=== PATIENT | female | born 1940 | race Caucasian/White ===

== ENCOUNTER 2019-11-22 18:53 | Inpatient (IN) | payer MEDICARE ==
[~2019-11-22] VITALS: Ht 165.1 cm; Wt 99.3 kg
[~2019-11-22 18:53] MED LIST: HYDR12.575 PO; LEVO25TA4 PO
--- NOTE | 2019-11-22 19:22 | PHYS DOC ---
General Adult EDM: Chief Complaint: WEAKNESS/GENERALIZED HPI: HPI: 79-year-old female past medical history hypertension hyperlipidemia hypothyroid presents by EMS for the evaluation of generalized weakness. Patient states she is globally weak. She states she cannot get up out of her bed and walk. She tells me that her cannot take care of her. Earlier this month patient was hospitalized at [facility] for a fall related to dizziness. Patient states she had a forehead laceration that required 6 sutures. After hospitalization patient states she was discharged to [facility]. She states she was at [facility] for 1 week and then discharged yesterday. Patient complains that she is so weak that she cannot stand or walk. She states her is also weak and cannot take care of her. She denies any headache chest pain shortness of breath abdominal pain. Review of Systems: Review of Systems: Constitutional: Denies fever or chills. [] Eyes: Denies change in visual acuity. [] HENT: Denies nasal congestion or sore throat. [] Respiratory: Denies cough or shortness of breath. [] Cardiovascular: Denies chest pain or edema. [] GI: Denies abdominal pain, nausea, vomiting, bloody stools or diarrhea. [] : Denies dysuria. [] Musculoskeletal: Denies back pain or joint pain. [] Integument: Denies rash. [] Neurologic: Denies headache, focal weakness or sensory changes. [Positive generalized weakness] Endocrine: Denies polyuria or polydipsia. [] Lymphatic: Denies swollen glands. [] Psychiatric: Denies depression or anxiety. [] Heart Score: Risk Factors: Risk Factors: DM, Current or recent (<one month) smoker, HTN, HLP, family history of CAD, obesity. Risk Scores: Score 0 - 3: 2.5% MACE over next 6 weeks - Discharge Home Score 4 - 6: 20.3% MACE over next 6 weeks - Admit for Clinical Observation Score 7 - 10: 72.7% MACE over next 6 weeks - Early Invasive Strategies Allergies: Allergies: Allergies Coded Allergies Type Severity Reaction Last Updated Verified No Known Drug Allergies 06/26/13 No Physical Exam: PE: Constitutional: Well developed, well nourished, no acute distress, non-toxic appearance. [] HENT: Normocephalic, atraumatic, bilateral external ears normal, oropharynx moist, no oral exudates, nose normal. [] Eyes: PERRLA, EOMI, conjunctiva normal, no discharge. [] Neck: Normal range of motion, no tenderness, supple, no stridor. [] Cardiovascular:Heart rate regular rhythm, no murmur [] Lungs & Thorax: Bilateral breath sounds clear to auscultation [] Abdomen: Bowel sounds normal, soft, no tenderness, no masses, no pulsatile mass es. [] Skin: Warm, dry, no erythema, no rash. [] Back: No tenderness, no CVA tenderness. [] Extremities: No tenderness, no cyanosis, no clubbing, ROM intact, no edema. [] Neurologic: Alert and oriented X 3, normal motor function, normal sensory function, no focal deficits noted. [] Psychologic: Affect normal, judgement normal, mood normal. [] EKG: EKG: [] EKG time 1913 sinus rhythm left axis deviation no ST elevation no ST depression no acute TX Heart rate 82 Radiology/Procedures: Radiology/Procedures: [] Course & Med Decision Making: Course & Med Decision Making Pertinent Labs and Imaging studies reviewed. (See chart for details) [] Dragon Disclaimer: Dragon Disclaimer: This electronic medical record was generated, in whole or in part, using a voice recognition dictation system. Departure Departure Impression: Primary Impression: Weakness Disposition: ADMITTED INPATIENT Admitting Physician: NICA Condition: STABLE Referrals: DELIA SAWANT MD (PCP) Justicifation of Admission Dx: Justifications for Admission: Justification of Admission Dx: Yes Comments: Generalized Weakness, Unable to Care for Self AHMET RODRÍGUEZ I DO Nov 22, 2019 19:22
[2019-11-22 20:00] LABS: BASO % 0 % (0-3); EOS % 0 % (0-3); HEMATOCRIT 37.1 % (36.0-47.0); HEMOGLOBIN 12.9 g/dL (12.0-15.5); LYMPH % 9 % (24-48); MEAN CORPUSCULAR HEMOGLOBIN 33 pg (25-35); MEAN CORPUSCULAR HGB CONC 35 g/dL (31-37); MEAN CORPUSCULAR VOLUME 95 fL (79-100); MONO # 0.6 x10^3/uL (0.0-1.1); MONO % 6 % (0-9); NEUT # 9.6 x10^3/uL (1.8-7.7); NEUT % 85 % (31-73); PLATELET COUNT 249 x10^3/uL (140-400); RED BLOOD COUNT 3.91 x10^6/uL (3.50-5.40); RED CELL DISTRIBUTION WIDTH 14.9 % (11.5-14.5); WHITE BLOOD COUNT 11.3 x10^3/uL (4.0-11.0)
[2019-11-22 20:33] LABS: % LYMPHS 13 % (24-48); % MONOS 5 % (0-10); % SEGS 82 % (35-66); PLT ESTIMATE ADEQUATE (ADEQUATE)
[2019-11-22 20:35] LABS: CALCIUM 9.7 mg/dL (8.5-10.1); CREATININE 1.1 mg/dL (0.6-1.0); GFR 47.8; POTASSIUM 4.5 mmol/L (3.5-5.1)
[2019-11-22 20:40] LABS: ALBUMIN 3.6 g/dL (3.4-5.0); ALBUMIN/GLOBULIN RATIO 0.9 (1.0-1.7); TOTAL BILIRUBIN 0.7 mg/dL (0.2-1.0); TOTAL PROTEIN 7.7 g/dL (6.4-8.2)
[2019-11-22] MEDS ORDERED: ACETAMINOPHEN 325 MG TABLET. PO ONE (22:30)
[2019-11-22 23:30] VITALS: BP 111/63
[2019-11-23] MEDS ORDERED: AMLO10TA8 PO (00:02)
[2019-11-23 03:00] VITALS: BP 150/63
[2019-11-23 07:00] VITALS: BP 153/64
--- NOTE | 2019-11-23 07:44 | PDOC1 ---
History and Physical Date of Admission Date of Admission DATE: 11/23/19 TIME: 07:41 Identification/Chief Complaint Chief Complaint Generalized weakness Source Source: Patient History of Present Illness History of Present Illness Patient is an 79-year-old female who presents with complaints of generalized weakness for the past month. She states her weakness is worse in her bilateral lower legs. Patient was recently hospitalized at [facility] after sustaining a fall with head injury. She was sent to [facility] for further rehab and discharged home. Patient states that her weaknes s has not gotten any worse, but has not gotten better, which is the reason why she came to the ER. She states she lives at home with her who is unable to care for. They have discussed long-term care in the past but have been unable to make a decision appropriate facility. Patient is wanting to pursue long-term care facilities upon discharge. I questioned her about her past medical history, she giggles and states "I do not know". She denies any significant pain. Past Medical History Past Medical History Unable to obtain due to confusion Past Surgical History Past Surgical History Unable to obtain due to confusion Family History Family History Noncontributory Social History Smoke: No ALCOHOL: none Drugs: None Current Problem List Problem List Problems Medical Problems: (1) Weakness Status: Acute Current Medications Current Medications Current Medications Acetaminophen (Tylenol) 650 mg 1X ONCE PO Last administered on 11/22/19at 22:44; Start 11/22/19 at 22:30; Stop 11/22/19 at 22:31; Status DC Calcium Carbonate/ Glycine (Tums) 500 mg PRN Q3HRS PRN PO UPSET STOMACH; Start 11/23/19 at 07:45; Status UNV Acetaminophen (Tylenol) 650 mg PRN Q6HRS PRN PO Headaches, Temp > 101.5F; Start 11/23/19 at 07:45; Status UNV Ibuprofen (Motrin) 400 mg PRN Q6HRS PRN PO MILD PAIN 1-3; Start 11/23/19 at 07:45; Status UNV Docusate Sodium (Colace) 100 mg BID PO ; Start 11/23/19 at 09:00; Status UNV Heparin Sodium (Porcine) (Heparin Sodium) 5,000 unit Q12HR SQ ; Start 11/23/19 at 09:00; Status UNV Active Scripts Active Reported Amlodipine Besylate 10 Mg Tablet 10 Mg PO DAILY Hydrochlorothiazide Capsule (Hydrochlorothiazide) 12.5 Mg Capsule 12.5 Mg PO Levothyroxine Sodium 25 Mcg Tablet 25 Mcg PO Allergies Allergies: Coded Allergies: No Known Drug Allergies (Unverified , 06/26/13) ROS General: No: Chills, Night Sweats PSYCHOLOGICAL ROS: No: Hallucinations, Suicidal ideation Eyes: No Blurry vision, No Double vision HEENT: No: Nasal discharge, Sore Throat ALLERGY AND IMMUNOLOGY: No: Hives, Nasal Congestion Hematological and Lymphatic: No: Bleeding Problems, Brusing Respiratory: No: Cough, Shortness of breath Cardiovascular: No Chest Pain, No Palpitations Gastrointestinal: No Nausea, No Vomiting, No Abdominal Pain Genitourinary: No Dysuria, No Hematuria Musculoskeletal: Yes Joint Pain (Right hip pain); No Joint Swelling Neurological: Yes Confusion; No Headaches Skin: No Pruritus, No Rash Physical Exam General: Alert, No acute distress HEENT: PERRLA, EOMI Lungs: Clear to auscultation, Normal air movement Heart: RRR, other (Systolic murmur) Cardiovascular: S1, S2 Abdomen: Soft, No tenderness, Other (Obese abdomen) Extremities: No clubbing, No cyanosis, Other (+1 bilateral lower extremity edema) Skin: No rashes, No significant lesion Neuro: Other (Strength 2/3 bilateral lower extremities) Psych/Mental Status: Mood NL Vitals Vitals Vital Signs Date Time Temp Pulse Resp B/P (MAP) Pulse Ox O2 Delivery O2 Flow Rate FiO2 11/23/19 03:00 98.4 80 18 150/63 (92) 96 Room Air 98.4 Labs Labs Laboratory Tests Test 11/22/19 19:55 11/22/19 20:20 White Blood Count 11.3 x10^3/uL (4.0-11.0) Red Blood Count 3.91 x10^6/uL (3.50-5.40) Hemoglobin 12.9 g/dL (12.0-15.5) Hematocrit 37.1 % (36.0-47.0) Mean Corpuscular Volume 95 fL (79-100) Mean Corpuscular Hemoglobin 33 pg (25-35) Mean Corpuscular Hemoglobin Concent 35 g/dL (31-37) Red Cell Distribution Width 14.9 % (11.5-14.5) Platelet Count 249 x10^3/uL (140-400) Neutrophils (%) (Auto) 85 % (31-73) Lymphocytes (%) (Auto) 9 % (24-48) Monocytes (%) (Auto) 6 % (0-9) Eosinophils (%) (Auto) 0 % (0-3) Basophils (%) (Auto) 0 % (0-3) Neutrophils # (Auto) 9.6 x10^3/uL (1.8-7.7) Lymphocytes # (Auto) 1.0 x10^3/uL (1.0-4.8) Monocytes # (Auto) 0.6 x10^3/uL (0.0-1.1) Eosinophils # (Auto) 0.0 x10^3/uL (0.0-0.7) Basophils # (Auto) 0.0 x10^3/uL (0.0-0.2) Segmented Neutrophils % 82 % (35-66) Lymphocytes % 13 % (24-48) Monocytes % 5 % (0-10) Platelet Estimate Adequate (ADEQUATE) Sodium Level 137 mmol/L (136-145) Potassium Level 4.5 mmol/L (3.5-5.1) Chloride Level 103 mmol/L (98-107) Carbon Dioxide Level 27 mmol/L (21-32) Anion Gap 7 (6-14) Blood Urea Nitrogen 43 mg/dL (7-20) Creatinine 1.1 mg/dL (0.6-1.0) Estimated GFR (Cockcroft-Gault) 47.8 BUN/Creatinine Ratio 39 (6-20) Glucose Level 137 mg/dL (70-99) Calcium Level 9.7 mg/dL (8.5-10.1) Total Bilirubin 0.7 mg/dL (0.2-1.0) Aspartate Amino Transf (AST/SGOT) 21 U/L (15-37) Alanine Aminotransferase (ALT/SGPT) 14 U/L (14-59) Alkaline Phosphatase 145 U/L (46-116) Troponin I Quantitative < 0.017 ng/mL (0.000-0.055) Total Protein 7.7 g/dL (6.4-8.2) Albumin 3.6 g/dL (3.4-5.0) Albumin/Globulin Ratio 0.9 (1.0-1.7) Laboratory Tests Test 11/22/19 19:55 11/22/19 20:20 White Blood Count 11.3 x10^3/uL (4.0-11.0) Red Blood Count 3.91 x10^6/uL (3.50-5.40) Hemoglobin 12.9 g/dL (12.0-15.5) Hematocrit 37.1 % (36.0-47.0) Mean Corpuscular Volume 95 fL (79-100) Mean Corpuscular Hemoglobin 33 pg (25-35) Mean Corpuscular Hemoglobin Concent 35 g/dL (31-37) Red Cell Distribution Width 14.9 % (11.5-14.5) Platelet Count 249 x10^3/uL (140-400) Neutrophils (%) (Auto) 85 % (31-73) Lymphocytes (%) (Auto) 9 % (24-48) Monocytes (%) (Auto) 6 % (0-9) Eosinophils (%) (Auto) 0 % (0-3) Basophils (%) (Auto) 0 % (0-3) Neutrophils # (Auto) 9.6 x10^3/uL (1.8-7.7) Lymphocytes # (Auto) 1.0 x10^3/uL (1.0-4.8) Monocytes # (Auto) 0.6 x10^3/uL (0.0-1.1) Eosinophils # (Auto) 0.0 x10^3/uL (0.0-0.7) Basophils # (Auto) 0.0 x10^3/uL (0.0-0.2) Segmented Neutrophils % 82 % (35-66) Lymphocytes % 13 % (24-48) Monocytes % 5 % (0-10) Platelet Estimate Adequate (ADEQUATE) Sodium Level 137 mmol/L (136-145) Potassium Level 4.5 mmol/L (3.5-5.1) Chloride Level 103 mmol/L (98-107) Carbon Dioxide Level 27 mmol/L (21-32) Anion Gap 7 (6-14) Blood Urea Nitrogen 43 mg/dL (7-20) Creatinine 1.1 mg/dL (0.6-1.0) Estimated GFR (Cockcroft-Gault) 47.8 BUN/Creatinine Ratio 39 (6-20) Glucose Level 137 mg/dL (70-99) Calcium Level 9.7 mg/dL (8.5-10.1) Total Bilirubin 0.7 mg/dL (0.2-1.0) Aspartate Amino Transf (AST/SGOT) 21 U/L (15-37) Alanine Aminotransferase (ALT/SGPT) 14 U/L (14-59) Alkaline Phosphatase 145 U/L (46-116) Troponin I Quantitative < 0.017 ng/mL (0.000-0.055) Total Protein 7.7 g/dL (6.4-8.2) Albumin 3.6 g/dL (3.4-5.0) Albumin/Globulin Ratio 0.9 (1.0-1.7) VTE Prophylaxis Ordered VTE Prophylaxis Devices: No VTE Pharmacological Prophylaxi: Yes Assessment/Plan Assessment/Plan Generalized weakness, vasomotor nephropathy, physical deconditioning, dehydration Plan: Place inpatient evaluate with PT/OT. Patient is interested in pursuing long-term care. Echocardiogram, vitamin B12, CK, TSH. Will give supportive care with IV normal saline. Cardiac Diet. DVT prophylaxis. DNR. Justifications for Admission Other Justification NOVA WONG MD Nov 23, 2019 07:44
[2019-11-23] MEDS ORDERED: CALCIUM CARBONATE 500 MG TAB.CHEW PO PRN (07:45)
[2019-11-23] MEDS: IV NORMAL SALINE 1000ML BAG 1,000 ML IV SCH ×2 (09:00→20:08)
[2019-11-23] MEDS: DOCUSATE SODIUM 100 MG CAPSULE. PO SCH ×2 (09:35→20:08)
[2019-11-23] MEDS: HEPARIN for SUB-Q USE 5,000 UNIT/ML VIAL. SQ SCH ×2 (09:41→20:13)
[2019-11-23 11:00] VITALS: BP 143/60
[2019-11-23 15:00] VITALS: BP 129/48
[2019-11-23 19:00] VITALS: BP 149/66
[2019-11-23 23:00] VITALS: BP 139/49
[2019-11-24 03:00] VITALS: BP 145/66
[2019-11-24 04:30] LABS: BASO % 0 % (0-3); CALCIUM 8.6 mg/dL (8.5-10.1); CREATININE 0.8 mg/dL (0.6-1.0); EOS % 0 % (0-3); HEMATOCRIT 35.2 % (36.0-47.0); HEMOGLOBIN 11.6 g/dL (12.0-15.5); LYMPH # 1.7 x10^3/uL (1.0-4.8); LYMPH % 26 % (24-48); MEAN CORPUSCULAR HEMOGLOBIN 33 pg (25-35); MEAN CORPUSCULAR HGB CONC 33 g/dL (31-37); MEAN CORPUSCULAR VOLUME 99 fL (79-100); MONO # 0.6 x10^3/uL (0.0-1.1); MONO % 9 % (0-9); NEUT # 4.2 x10^3/uL (1.8-7.7); NEUT % 65 % (31-73); PLATELET COUNT 192 x10^3/uL (140-400); RED BLOOD COUNT 3.56 x10^6/uL (3.50-5.40); RED CELL DISTRIBUTION WIDTH 14.9 % (11.5-14.5); WHITE BLOOD COUNT 6.4 x10^3/uL (4.0-11.0)
[2019-11-24] MEDS: LEVOTHYROXINE 25 MCG TABLET. PO SCH (06:02)
[2019-11-24] MEDS: IV NORMAL SALINE 1000ML BAG 1,000 ML IV SCH ×2 (06:02→15:10)
[2019-11-24 07:00] VITALS: BP 124/47
[2019-11-24] MEDS: DOCUSATE SODIUM 100 MG CAPSULE. PO SCH ×2 (08:16→20:37)
[2019-11-24] MEDS: hydroCHLOROthiazide 12.5 MG CAPSULE PO SCH (08:16)
[2019-11-24] MEDS: HEPARIN for SUB-Q USE 5,000 UNIT/ML VIAL. SQ SCH ×2 (08:21→20:37)
[2019-11-24 11:00] VITALS: BP 122/49
--- NOTE | 2019-11-24 12:22 | PDOC ---
[employer] PROGRESS NOTE Date of Service DOS: DATE: 11/24/19 TIME: 12:15 Chief Complaint Chief Complaint Generalized weakness vasomotor nephropathy Anemia due to B12 deficiency physical deconditioning dehydration Dementia We will start IV and p.o. vitamin B12 replacement inpatient evaluate with PT/OT. Echocardiogram, vitamin B12, CK, TSH Lovenox for DVT prophylaxis ADA diet DNR Discussed with RN and PETER Disposition pending SNF versus LTAC placement Surrogate decision maker is the . History of Present Illness History of Present Illness 79-year-old female who presents with complaints of generalized weakness for the past month. She states her weakness is worse in her bilateral lower legs. Patient was recently hospitalized at [facility] after sustaining a f all with head injury. She was sent to [facility] for further rehab and discharged home. Patient states that her weakness has not gotten any worse, but has not gotten better, which is the reason why she came to the ER. She states she lives at home with her who is unable to care for. They have discussed long-term care in the past but have been unable to make a decision appropriate facility. Patient is wanting to pursue long-term care facilities upon discharge. I questioned her about her past medical history, she giggles and states "I do not know". She denies any significant pain. 11/24/2019 No acute events overnight. Patient seen and examined bedside. Patient is mildly confused and is alert and awake. Patient does not have any complaints at this time. Patient's chart, labs, images were reviewed and discussed with RN Vitals/I&O Vitals/I&O: Vital Signs Date Time Temp Pulse Resp B/P (MAP) Pulse Ox O2 Delivery O2 Flow Rate FiO2 11/24/19 11:00 97.7 78 16 122/49 (73) 96 Room Air 97.7 I & O 11/23/19 11/23/19 11/24/19 15:00 23:00 07:00 Intake Total 200 ml 240 ml 300 ml Balance 200 ml 240 ml 300 ml Physical Exam Physical Exam: GEN: No apparent distress. Alert and oriented HEENT: Normal cephalic, atraumatic, external auditory canals are patent NECK: Supple, no JVD, no thyromegaly was noted LUNGS: Bilateral crackles HEART: RRR, S1, S2 present. Peripheral pulses intact, no obvious murmurs noted ABDOMEN: Soft, nontender. Positive bowel sounds, no organomegaly, normal bowel sounds EXTREMITIES: Strength is 4 out of 5 in lower extremities. +1 pedal edema bilaterally General: Alert, No acute distress Abdomen: Soft, No tenderness, Other (Obese abdomen) Extremities: No clubbing, No cyanosis, Other (+1 bilateral lower extremity edema) Skin: No rashes, No significant lesion Labs Labs: Laboratory Tests Test 11/24/19 03:35 White Blood Count 6.4 x10^3/uL (4.0-11.0) Red Blood Count 3.56 x10^6/uL (3.50-5.40) Hemoglobin 11.6 g/dL (12.0-15.5) Hematocrit 35.2 % (36.0-47.0) Mean Corpuscular Volume 99 fL (79-100) Mean Corpuscular Hemoglobin 33 pg (25-35) Mean Corpuscular Hemoglobin Concent 33 g/dL (31-37) Red Cell Distribution Width 14.9 % (11.5-14.5) Platelet Count 192 x10^3/uL (140-400) Neutrophils (%) (Auto) 65 % (31-73) Lymphocytes (%) (Auto) 26 % (24-48) Monocytes (%) (Auto) 9 % (0-9) Eosinophils (%) (Auto) 0 % (0-3) Basophils (%) (Auto) 0 % (0-3) Neutrophils # (Auto) 4.2 x10^3/uL (1.8-7.7) Lymphocytes # (Auto) 1.7 x10^3/uL (1.0-4.8) Monocytes # (Auto) 0.6 x10^3/uL (0.0-1.1) Eosinophils # (Auto) 0.0 x10^3/uL (0.0-0.7) Basophils # (Auto) 0.0 x10^3/uL (0.0-0.2) Sodium Level 141 mmol/L (136-145) Potassium Level 4.0 mmol/L (3.5-5.1) Chloride Level 107 mmol/L (98-107) Carbon Dioxide Level 26 mmol/L (21-32) Anion Gap 8 (6-14) Blood Urea Nitrogen 24 mg/dL (7-20) Creatinine 0.8 mg/dL (0.6-1.0) Estimated GFR (Cockcroft-Gault) 69.0 Glucose Level 88 mg/dL (70-99) Calcium Level 8.6 mg/dL (8.5-10.1) Assessment and Plan Assessmemt and Plan Problems Medical Problems: (1) Weakness Status: Acute Comment Review of Relevant I have reviewed the following items juan j (where applicable) has been applied. Medications: Current Medications Medications (Trade) Dose Ordered Sig/Sharif Route PRN Reason Start Time Stop Time Status Last Admin Dose Admin Hydrochlorothiazide (Microzide) 12.5 mg DAILY08 PO 11/24/19 08:00 11/24/19 08:16 Levothyroxine Sodium (Synthroid) 25 mcg DAILY06 PO 11/24/19 06:00 11/24/19 06:02 Justifications for Admission Other Justification RULA RODRIGUEZ MD Nov 24, 2019 12:22
[2019-11-24] MEDS ORDERED: CYANOCOBALAMIN (VITAMIN B-12) 1,000 MCG/ML VIAL IM ONE (12:30)
[2019-11-24 15:00] VITALS: BP 118/46
[2019-11-24 19:00] VITALS: BP 152/55
[2019-11-24] MEDS: ACETAMINOPHEN 325 MG TABLET. PO PRN (20:31)
[2019-11-24 23:00] VITALS: BP 150/64
[2019-11-25] MEDS: IV NORMAL SALINE 1000ML BAG 1,000 ML IV SCH ×3 (00:52→21:03)
[2019-11-25 03:00] VITALS: BP 166/71
[2019-11-25] MEDS: LEVOTHYROXINE 25 MCG TABLET. PO SCH (05:44)
[2019-11-25 07:00] VITALS: BP 158/74
[2019-11-25 07:20] LABS: CALCIUM 8.5 mg/dL (8.5-10.1); CREATININE 0.8 mg/dL (0.6-1.0); POTASSIUM 3.5 mmol/L (3.5-5.1)
[2019-11-25] MEDS: DOCUSATE SODIUM 100 MG CAPSULE. PO SCH ×2 (08:44→21:03)
[2019-11-25] MEDS: hydroCHLOROthiazide 12.5 MG CAPSULE PO SCH (08:45)
[2019-11-25] MEDS: CYANOCOBALAMIN (VITAMIN B-12) 1,000 MCG TABLET. PO SCH (08:45)
[2019-11-25] MEDS: HEPARIN for SUB-Q USE 5,000 UNIT/ML VIAL. SQ SCH ×2 (08:47→21:09)
--- NOTE | 2019-11-25 10:52 | NUR ---
PETER following. Discussed with RN, cardiac diet. Pt has apparently been to [facility] in the past. SW awaiting confirmation from [facility] of whether pt has any SNU days left. PT/OT ordered, pt having an echo today. Per chart pt wanting manager intermediate care placement, pt does not have medicaid - SW called [employer] to determine if they can do a medicaid application for pt for [facility] intermediate care - however no answer, and voicemail box full. PETER will continue to follow. Addendum: 11/25/19 at 1357 by VALENTINA GREEN PETER met with pt, pt is in her copay days for SNU. Pt reported she was at [facility] for 4 weeks and she cannot afford the copays. Pt interested in [facility] care. PETER was able to reach [employer] to have them determine if pt is eligible for medicaid. Pt reported her is at home, but she does not have anyone else to help take care of her. RN notified.
[2019-11-25 11:00] VITALS: BP 158/54
--- NOTE | 2019-11-25 14:56 | PDOC ---
[employer] PROGRESS NOTE Date of Service DOS: DATE: 11/25/19 TIME: 14:54 Chief Complaint Chief Complaint Generalized weakness vasomotor nephropathy Anemia due to B12 deficiency physical deconditioning dehydration Dementia IV potassium replacement today We will start IV and p.o. vitamin B12 replacement inpatient evaluate with PT/OT. Pending echo Pending COVID testing before discharge to SNF Lovenox for DVT prophylaxis ADA diet DNR Discussed with RN and PETER Disposition pending SNF versus LTAC placement Surrogate decision maker is the . History of Present Illness History of Present Illness 79-year-old female who presents with complaints of generalized weakness for the past month. She states her weakness is worse in her bilateral lower legs. Patient was recently hospitalized at [facility] after sustaining a fall with head injury. She was sent to [facility] for further rehab and discharged home. Patient states that her weakness has not gotten any worse, but has not gotten better, which is the reason why she came to the ER. She states she lives at home with her who is unable to care for. They have discussed long-term care in the past but have been unable to make a decision appropriate facility. Patient is wanting to pursue long-term care facilities upon discharge. I questioned her about her past medical history, she giggles and states "I do not know". She denies any significant pain. 11/24/2019 No acute events overnight. Patient seen and examined bedside. Patient is mildly confused and is alert and awake. Patient does not have any complaints at this time. Patient's chart, labs, images were reviewed and discussed with RN 11/25/2019 No acute events overnight. Patient seen and examined bedside. Patient is alert and awake and has no complaints voiced at this time. Patient's chart, labs, images were reviewed and discussed with RN Vitals/I&O Vitals/I&O: Vital Signs Date Time Temp Pulse Resp B/P (MAP) Pulse Ox O2 Delivery O2 Flow Rate FiO2 11/25/19 11:00 98.7 72 18 158/54 (88) 97 Room Air 98.7 I & O 11/24/19 11/24/19 11/25/19 15:00 23:00 07:00 Intake Total 250 ml Balance 250 ml Physical Exam Physical Exam: GEN: No apparent distress. Alert and oriented HEENT: Normal cephalic, atraumatic, external auditory canals are patent NECK: Supple, no JVD, no thyromegaly was noted LUNGS: Bilateral crackles HEART: RRR, S1, S2 present. Peripheral pulses intact, no obvious murmurs noted ABDOMEN: Soft, nontender. Positive bowel sounds, no organomegaly, normal bowel sounds EXTREMITIES: Strength is 4 out of 5 in lower extremities. +1 pedal edema bilaterally General: Alert, No acute distress Abdomen: Soft, No tenderness, Other (Obese abdomen) Extremities: No clubbing, No cyanosis, Other (+1 bilateral lower extremity edema) Skin: No rashes, No significant lesion Labs Labs: Laboratory Tests Test 11/25/19 06:07 Sodium Level 143 mmol/L (136-145) Potassium Level 3.5 mmol/L (3.5-5.1) Chloride Level 108 mmol/L (98-107) Carbon Dioxide Level 27 mmol/L (21-32) Anion Gap 8 (6-14) Blood Urea Nitrogen 17 mg/dL (7-20) Creatinine 0.8 mg/dL (0.6-1.0) Estimated GFR (Cockcroft-Gault) 69.0 Glucose Level 141 mg/dL (70-99) Calcium Level 8.5 mg/dL (8.5-10.1) Assessment and Plan Assessmemt and Plan Problems Medical Problems: (1) Weakness Status: Acute Comment Review of Relevant I have reviewed the following items juan j (where applicable) has been applied. Medications: Current Medications Medications (Trade) Dose Ordered Sig/Sharif Route PRN Reason Start Time Stop Time Status Last Admin Dose Admin Cyanocobalamin (Vitamin B-12) 1,000 mcg DAILY PO 11/25/19 09:00 11/25/19 08:45 Justifications for Admission Other Justification RULA RODRIGUEZ MD Nov 25, 2019 14:56
[2019-11-25 15:00] VITALS: BP 139/56
--- NOTE | 2019-11-25 18:02 | CARD ---
MR#: [id number] Date of Study: 11/25/2019 Ordering Physician: NOVA WONG, Referring Physician: NOVA WONG, Tech: Denise Coleman RDCS APPROVED REPORT EXAM: Two-dimensional and M-mode echocardiogram with Doppler and color Doppler. Other Information Quality : Fair Technically limited study due to INDICATION Fatigue 2D DIMENSIONS RVDd3.0 (2.9-3.5cm)Left Atrium(2D)4.3 (1.6-4.0cm) IVSd1.1 (0.7-1.1cm)Aortic Root(2D)2.6 (2.0-3.7cm) LVDd4.4 (3.9-5.9cm)LVOT Diameter1.9 (1.8-2.4cm) PWd1.1 (0.7-1.1cm)LVDs3.3 (2.5-4.0cm) FS (%) 24.8 %SV44.0 ml LVEF(%)49.4 (>50%) Aortic Valve AoV Peak Brian.197.4cm/sAoV VTI39.7cm AO Peak GR.15.6mmHgLVOT VTI 22.64cm AO Mean GR.9mmHgAVA (VTI)1.55cm2 Mitral Valve MV E Komhiich723.0cm/sMV DECEL KXEV323ow MV A Rkcporah361.7cm/sE/A Ratio1.1 TDI Lateral E' P. V5.99cm/sMedial E' P. V5.34cm/s E/Lateral E'23.0E/Medial E'25.8 Tricuspid Valve TR P. [id number]/sRAP [id number] TR Peak Gr.12ntNtIAHT15llYj Pulmonary Vein S1 Tyhrzydd91.1cm/sS2 Npdboczm72.21cm/s D2 Uandvfmx72.2cm/s LEFT VENTRICLE The left ventricle is normal size. There is normal left ventricular wall thickness. The left ventricu lar systolic function is normal and the ejection fraction is within normal range. The Ejection Fracti on is 55%. Septal motion consistent with conduction abnormality. Transmitral Doppler flow pattern is Grade II-pseudonormal filling dynamics. RIGHT VENTRICLE The right ventricle is normal size. The right ventricular systolic function is normal. ATRIA The left atrium is mildly dilated. The right atrium size is normal. The interatrial septum is intact with no evidence for an atrial septal defect or patent foramen ovale as noted on 2-D or Doppler imagi ng. AORTIC VALVE The aortic valve is not well visualized but patient had a TAVR procedure in 02/2019. Doppler and [place] r Flow revealed no significant aortic regurgitation. Calculated aortic valve area is 1.55 cm2 with ma ximum pressure gradient of 16 mmHg and mean pressure gradient of 9 mmHg. MITRAL VALVE The mitral valve is calcified but opens well. There is no evidence of mitral valve prolapse. There is no mitral valve stenosis. Doppler and Color-flow revealed mild to moderate mitral regurgitation. TRICUSPID VALVE The tricuspid valve is normal in structure and function. Doppler and Color Flow revealed mild tricusp id regurgitation.There is moderate pulmonary hypertension.The PA pressure was estimated at 52 mmHg. T here is no tricuspid valve stenosis. PULMONIC VALVE The pulmonic valve is not well visualized. Doppler and Color Flow revealed no pulmonic valvular regur gitation. There is no pulmonic valvular stenosis. GREAT VESSELS The aortic root is normal in size. The ascending aorta is not well seen. The IVC is normal in size an d collapses >50% with inspiration. PERICARDIAL EFFUSION There is no evidence of significant pericardial effusion. Critical Notification Critical Value: No <Conclusion> The left ventricular systolic function is normal and the ejection fraction is within normal range. Th e Ejection Fraction is 55%. Septal motion consistent with conduction abnormality. The aortic valve is not well visualized but patient had a TAVR procedure in 02/2019. Calculated aortic valve area is 1.55 cm2 with maximum pressure gradient of 16 mmHg and mean pressure gradient of 9 mmHg. Doppler and Color Flow revealed mild tricuspid regurgitation.There is moderate pulmonary hypertension .The PA pressure was estimated at 52 mmHg. Signed by : Sander Murdock, Electronically Approved : 11/25/2019 18:02:08
[2019-11-25 19:00] VITALS: BP 153/71
[2019-11-25 23:00] VITALS: BP 157/69
[2019-11-26 03:00] VITALS: BP 163/73
--- NOTE | 2019-11-26 04:33 | EKG ---
[facility] [address] [place] [address] Test Date: 2019-11-22 Test Time: 19:14:32 Pat Name: BELGICA OLIVO Department: Room: Gender: F [employer]: : 1940 Requested By: AHMET RODRÍGUEZ Order Number: [id number] Reading MD: Measurements Intervals [place] Rate: 82 P: 43 MD: 236 QRS: -40 QRSD: 124 T: 100 QT: 396 QTc: 466 Interpretive Statements SINUS RHYTHM PROLONGED MD INTERVAL ABNORMAL LEFT AXIS DEVIATION T ABNORMALITY IN HIGH LATERAL LEADS ABNORMAL ECG RI6.02 No previous ECG available for comparison
[2019-11-26 05:08] LABS: CALCIUM 8.5 mg/dL (8.5-10.1); CREATININE 0.9 mg/dL (0.6-1.0); GFR 60.2; POTASSIUM 3.4 mmol/L (3.5-5.1)
[2019-11-26] MEDS: LEVOTHYROXINE 25 MCG TABLET. PO SCH (06:01)
[2019-11-26] MEDS: IV NORMAL SALINE 1000ML BAG 1,000 ML IV SCH ×2 (06:02→15:56)
[2019-11-26 07:00] VITALS: BP 141/60
[2019-11-26] MEDS: hydroCHLOROthiazide 12.5 MG CAPSULE PO SCH (08:29)
[2019-11-26] MEDS: CYANOCOBALAMIN (VITAMIN B-12) 1,000 MCG TABLET. PO SCH (08:29)
[2019-11-26] MEDS: DOCUSATE SODIUM 100 MG CAPSULE. PO SCH ×3 (08:29→21:00)
[2019-11-26] MEDS: HEPARIN for SUB-Q USE 5,000 UNIT/ML VIAL. SQ SCH ×2 (08:30→21:00)
[2019-11-26] MEDS ORDERED: POTASSIUM CHLORIDE 20 MEQ TABLET.ER. PO ONE (09:30)
--- NOTE | 2019-11-26 09:48 | NUR ---
SW following. Discussed with RN, PETER attempted to contact Med Assist to determine if they met with pt yesterday, voicemail box full. PETER will attempt again throughout the day. Addendum: 11/26/19 at 1527 by VALENTINA GREEN Med Assist advised pt will qualify for medicaid, they need to know which facility pt is going half-way care at. PETER spoke with pt, pt [facility] wanted [facility], however, they do not have any half-way care beds. Pt agreeable to referral to [facility], [facility], [facility]. [facility] is not taking medicaid pending. Pt does not want [facility] or [facility]. [facility] would be open to reviewing patient, however pt wants SW to try the other facilities first. PETER faxed referral to [facility] and [facility], awaiting fax machine to open up to send referral to [facility]. [facility] and [facility] accept medicaid pending on a case by case basis. PETER will continue to follow. Awaiting COVID-19 result for placement also.
[2019-11-26 11:00] VITALS: BP 138/56
--- NOTE | 2019-11-26 13:03 | PDOC ---
[employer] PROGRESS NOTE Date of Service DOS: DATE: 11/26/19 TIME: 13:02 Chief Complaint Chief Complaint Generalized weakness vasomotor nephropathy Anemia due to B12 deficiency physical deconditioning dehydration Dementia Moderate pulmonary hypertension with PA pressures of 52 IV potassium replacement today Continue p.o. vitamin B12 replacement inpatient evaluate with PT/OT. Pending COVID testing before discharge to SNF Lovenox for DVT prophylaxis ADA diet DNR Discussed with RN and SW Disposition pending SNF versus LTAC placement Surrogate decision maker is the . History of Present Illness History of Present Illness 79-year-old female who presents with complaints of generalized weakness for the past month. She states her weakness is worse in her bilateral lower legs. Patient was recently hospitalized at [facility] after sustaining a fall with head injury. She was sent to [facility] nursing [facility] for further rehab and discharged home. Patient states that her weakness has not gotten any worse, but has not gotten better, which is the reason why she came to the ER. She states she lives at home with her who is unable to care for. They have discussed long-term care in the past but have been unable to make a decision appropriate facility. Patient is wanting to pursue long-term care facilities upon discharge. I questioned her about her past medical history, she giggles and states "I do not know". She denies any significant pain. 11/24/2019 No acute events overnight. Patient seen and examined bedside. Patient is mildly confused and is alert and awake. Patient does not have any complaints at this time. Patient's chart, labs, images were reviewed and discussed with RN 11/25/2019 No acute events overnight. Patient seen and examined bedside. Patient is alert and awake and has no complaints voiced at this time. Patient's chart, labs, images were reviewed and discussed with RN 11/26/2019 No acute events overnight. Patient is seen and examined bedside and tolerating breakfast. Patient's chart, labs, images were reviewed and discussed with RN Vitals/I&O Vitals/I&O: Vital Signs Date Time Temp Pulse Resp B/P (MAP) Pulse Ox O2 Delivery O2 Flow Rate FiO2 11/26/19 11:00 98.0 82 18 138/56 (83) 97 Room Air 98.0 I & O 11/25/19 11/25/19 11/26/19 15:00 23:00 07:00 Intake Total 2000 ml 350 ml Output Total 0 ml Balance 2000 ml 350 ml Physical Exam Physical Exam: GEN: No apparent distress. Alert and oriented HEENT: Normal cephalic, atraumatic, external auditory canals are patent NECK: Supple, no JVD, no thyromegaly was noted LUNGS: Bilateral crackles HEART: RRR, S1, S2 present. Peripheral pulses intact, no obvious murmurs noted ABDOMEN: Soft, nontender. Positive bowel sounds, no organomegaly, normal bowel sounds EXTREMITIES: Strength is 4 out of 5 in lower extremities. +1 pedal edema bilaterally General: Alert, No acute distress Abdomen: Soft, No tenderness, Other (Obese abdomen) Extremities: No clubbing, No cyanosis, Other (+1 bilateral lower extremity edema) Skin: No rashes, No significant lesion Labs Labs: Laboratory Tests Test 11/26/19 04:25 Sodium Level 141 mmol/L (136-145) Potassium Level 3.4 mmol/L (3.5-5.1) Chloride Level 106 mmol/L (98-107) Carbon Dioxide Level 26 mmol/L (21-32) Anion Gap 9 (6-14) Blood Urea Nitrogen 16 mg/dL (7-20) Creatinine 0.9 mg/dL (0.6-1.0) Estimated GFR (Cockcroft-Gault) 60.2 Glucose Level 91 mg/dL (70-99) Calcium Level 8.5 mg/dL (8.5-10.1) Assessment and Plan Assessmemt and Plan Problems Medical Problems: (1) Weakness Status: Acute Comment Review of Relevant I have reviewed the following items juan j (where applicable) has been applied. Medications: Current Medications Medications (Trade) Dose Ordered Sig/Sharif Route PRN Reason Start Time Stop Time Status Last Admin Dose Admin Potassium Chloride (Klor-Con) 40 meq 1X ONCE PO 11/26/19 09:30 11/26/19 09:31 DC 11/26/19 09:26 Justifications for Admission Other Justification RULA RODRIGUEZ MD Nov 26, 2019 13:03
[2019-11-26 15:00] VITALS: BP 142/62
[2019-11-26 19:00] VITALS: BP 167/79
[2019-11-26 23:00] VITALS: BP 132/59
[2019-11-27] MEDS: IBUPROFEN 400 MG TABLET. PO PRN (01:26)
[2019-11-27] MEDS: IV NORMAL SALINE 1000ML BAG 1,000 ML IV SCH ×3 (01:28→21:27)
[2019-11-27 03:00] VITALS: BP 163/76
[2019-11-27 06:07] LABS: CALCIUM 8.2 mg/dL (8.5-10.1); CREATININE 0.6 mg/dL (0.6-1.0); GFR 96.2; POTASSIUM 3.9 mmol/L (3.5-5.1)
[2019-11-27] MEDS: LEVOTHYROXINE 25 MCG TABLET. PO SCH (06:10)
[2019-11-27 07:00] VITALS: BP 153/63
[2019-11-27] MEDS: DOCUSATE SODIUM 100 MG CAPSULE. PO SCH ×2 (07:56→21:00)
[2019-11-27] MEDS: HEPARIN for SUB-Q USE 5,000 UNIT/ML VIAL. SQ SCH ×2 (07:56→21:00)
[2019-11-27] MEDS: hydroCHLOROthiazide 12.5 MG CAPSULE PO SCH (08:06)
[2019-11-27] MEDS: CYANOCOBALAMIN (VITAMIN B-12) 1,000 MCG TABLET. PO SCH (08:06)
--- NOTE | 2019-11-27 09:41 | NUR ---
PETER following. Discussed with RN. PETER spoke with Amber at [facility], they are reviewing referral. Awaiting acceptance decision from [facility] as well. PETER will continue to follow. Addendum: 11/27/19 at 1310 by VALENTINA GREEN Pt clinically accepted at [facility], they are requesting the medicaid application to verify. PETER sent message to Indu with [employer], requesting this be sent to [facility], or provided to PETER so it can be faxed by PETER. PETER will continue to follow.
[2019-11-27 11:00] VITALS: BP 148/60
--- NOTE | 2019-11-27 11:02 | PDOC ---
[employer] PROGRESS NOTE Date of Service DOS: DATE: 11/27/19 TIME: 11:00 Chief Complaint Chief Complaint Generalized weakness vasomotor nephropathy Anemia due to B12 deficiency physical deconditioning dehydration Dementia Moderate pulmonary hypertension with PA pressures of 52 continue IV potassium replacement PRN Continue p.o. vitamin B12 replacement inpatient evaluate with PT/OT. Pending COVID testing before discharge to SNF Lovenox for DVT prophylaxis ADA diet DNR Discussed with RN and SW Disposition pending SNF versus LTAC placement Surrogate decision maker is the . History of Present Illness History of Present Illness 79-year-old female who presents with complaints of generalized weakness for the past month. She states her weakness is worse in her bilateral lower legs. Patient was recently hospitalized at [facility] after sustaining a fall with head injury. She was sent to [facility] nursing [facility] for further rehab and discharged home. Patient states that her weakness has not gotten any worse, but has not gotten better, which is the reason why she came to the ER. She states she lives at home with her who is unable to care for. They have discussed long-term care in the past but have been unable to make a decision appropriate facility. Patient is wanting to pursue long-term care facilities upon discharge. I questioned her about her past medical history, she giggles and states "I do not know". She denies any significant pain. 11/24/2019 No acute events overnight. Patient seen and examined bedside. Patient is mildly confused and is alert and awake. Patient does not have any complaints at this time. Patient's chart, labs, images were reviewed and discussed with RN 11/25/2019 No acute events overnight. Patient seen and examined bedside. Patient is alert and awake and has no complaints voiced at this time. Patient's chart, labs, images were reviewed and discussed with RN 11/26/2019 No acute events overnight. Patient is seen and examined bedside and tolerating breakfast. Patient's chart, labs, images were reviewed and discussed with RN 11/27/2019 No events overnight. Patient seen and examined bedside. No voiced complaints at this time. Patient's chart, labs, images were reviewed and discussed with RN Vitals/I&O Vitals/I&O: Vital Signs Date Time Temp Pulse Resp B/P (MAP) Pulse Ox O2 Delivery O2 Flow Rate FiO2 9/10/20 07:19 Room Air 11/27/19 07:00 98.2 65 18 153/63 (93) 98 98.2 I & O 11/26/19 11/26/19 11/27/19 14:59 22:59 06:59 Intake Total 370 ml 240 ml 3200 ml Balance 370 ml 240 ml 3200 ml Physical Exam Physical Exam: GEN: No apparent distress. Alert and oriented HEENT: Normal cephalic, atraumatic, external auditory canals are patent NECK: Supple, no JVD, no thyromegaly was noted LUNGS: Bilateral crackles HEART: RRR, S1, S2 present. Peripheral pulses intact, no obvious murmurs noted ABDOMEN: Soft, nontender. Positive bowel sounds, no organomegaly, normal bowel sounds EXTREMITIES: Strength is 4 out of 5 in lower extremities. +1 pedal edema bilaterally General: Alert, No acute distress Abdomen: Soft, No tenderness, Other (Obese abdomen) Extremities: No clubbing, No cyanosis, Other (+1 bilateral lower extremity edema) Skin: No rashes, No significant lesion Labs Labs: Laboratory Tests Test 11/27/19 03:35 Sodium Level 141 mmol/L (136-145) Potassium Level 3.9 mmol/L (3.5-5.1) Chloride Level 107 mmol/L (98-107) Carbon Dioxide Level 26 mmol/L (21-32) Anion Gap 8 (6-14) Blood Urea Nitrogen 16 mg/dL (7-20) Creatinine 0.6 mg/dL (0.6-1.0) Estimated GFR (Cockcroft-Gault) 96.2 Glucose Level 85 mg/dL (70-99) Calcium Level 8.2 mg/dL (8.5-10.1) Assessment and Plan Assessmemt and Plan Problems Medical Problems: (1) Weakness Status: Acute Comment Review of Relevant I have reviewed the following items juan j (where applicable) has been applied. Justifications for Admission Other Justification RULA RODRIGUEZ MD Nov 27, 2019 11:02
[2019-11-27 15:00] VITALS: BP 162/74
[2019-11-27 19:00] VITALS: BP 125/65
[2019-11-27 23:00] VITALS: BP 165/77
[2019-11-28 03:00] VITALS: BP 148/69
[2019-11-28] MEDS: IBUPROFEN 400 MG TABLET. PO PRN (04:13)
[2019-11-28 05:52] LABS: CALCIUM 8.7 mg/dL (8.5-10.1); CREATININE 0.9 mg/dL (0.6-1.0); GFR 60.2
[2019-11-28] MEDS: LEVOTHYROXINE 25 MCG TABLET. PO SCH (05:57)
[2019-11-28 07:00] VITALS: BP 171/75
[2019-11-28] MEDS: DOCUSATE SODIUM 100 MG CAPSULE. PO SCH ×2 (09:00→20:56)
[2019-11-28] MEDS: HEPARIN for SUB-Q USE 5,000 UNIT/ML VIAL. SQ SCH ×2 (09:00→20:56)
[2019-11-28] MEDS: CYANOCOBALAMIN (VITAMIN B-12) 1,000 MCG TABLET. PO SCH (09:40)
[2019-11-28] MEDS: hydroCHLOROthiazide 12.5 MG CAPSULE PO SCH (09:41)
[2019-11-28] MEDS: IV NORMAL SALINE 1000ML BAG 1,000 ML IV SCH ×2 (09:41→18:51)
--- NOTE | 2019-11-28 10:14 | PDOC ---
[employer] PROGRESS NOTE Date of Service DOS: DATE: 11/28/19 TIME: 10:13 Chief Complaint Chief Complaint Generalized weakness vasomotor nephropathy Anemia due to B12 deficiency physical deconditioning dehydration Dementia Moderate pulmonary hypertension with PA pressures of 52 Negative covid test continue IV potassium replacement PRN Continue p.o. vitamin B12 replacement inpatient evaluate with PT/OT. Lovenox for DVT prophylaxis ADA diet DNR Discussed with RN and PETER Disposition pending SNF versus LTAC placement Surrogate decision maker is the . History of Present Illness History of Present Illness 79-year-old female who presents with complaints of generalized weakness for the past month. She states her weakness is worse in her bilateral lower legs. Patient was recently hospitalized at [facility] after sustaining a fall with head injury. She was sent to [facility] for further rehab and discharged home. Patient states that her weakness has not gotten any worse, but has not gotten better, which is the reason why she came to the ER. She states she lives at home with her who is unable to care for. They have discussed long-term care in the past but have been unable to make a decision appropriate facility. Patient is wanting to pursue long-term care facilities upon discharge. I questioned her about her past medical history, she giggles and states "I do not know". She denies any significant pain. 11/24/2019 No acute events overnight. Patient seen and examined bedside. Patient is mildly confused and is alert and awake. Patient does not have any complaints at this time. Patient's chart, labs, images were reviewed and discussed with RN 11/25/2019 No acute events overnight. Patient seen and examined bedside. Patient is alert and awake and has no complaints voiced at this time. Patient's chart, labs, images were reviewed and discussed with RN 11/26/2019 No acute events overnight. Patient is seen and examined bedside and tolerating breakfast. Patient's chart, labs, images were reviewed and discussed with RN 11/27/2019 No events overnight. Patient seen and examined bedside. No voiced complaints at this time. Patient's chart, labs, images were reviewed and discussed with RN 11/28/2019 No acute events overnight. No complaints at this time. Patient's chart, labs, images were reviewed and discussed with RN Vitals/I&O Vitals/I&O: Vital Signs Date Time Temp Pulse Resp B/P (MAP) Pulse Ox O2 Delivery O2 Flow Rate FiO2 11/28/19 07:00 97.8 75 16 171/75 (107) 98 Room Air 97.8 I & O 11/27/19 11/27/19 11/28/19 15:00 23:00 07:00 Intake Total 350 ml 240 ml Balance 350 ml 240 ml Physical Exam Physical Exam: GEN: No apparent distress. Alert and oriented HEENT: Normal cephalic, atraumatic, external auditory canals are patent NECK: Supple, no JVD, no thyromegaly was noted LUNGS: Bilateral crackles HEART: RRR, S1, S2 present. Peripheral pulses intact, no obvious murmurs noted ABDOMEN: Soft, nontender. Positive bowel sounds, no organomegaly, normal bowel sounds EXTREMITIES: Strength is 4 out of 5 in lower extremities. +1 pedal edema bilaterally General: Alert, No acute distress Abdomen: Soft, No tenderness, Other (Obese abdomen) Extremities: No clubbing, No cyanosis, Other (+1 bilateral lower extremity edema) Skin: No rashes, No significant lesion Labs Labs: Laboratory Tests Test 11/28/19 04:00 Sodium Level 140 mmol/L (136-145) Potassium Level 4.0 mmol/L (3.5-5.1) Chloride Level 105 mmol/L (98-107) Carbon Dioxide Level 27 mmol/L (21-32) Anion Gap 8 (6-14) Blood Urea Nitrogen 18 mg/dL (7-20) Creatinine 0.9 mg/dL (0.6-1.0) Estimated GFR (Cockcroft-Gault) 60.2 Glucose Level 88 mg/dL (70-99) Calcium Level 8.7 mg/dL (8.5-10.1) Assessment and Plan Assessmemt and Plan Problems Medical Problems: (1) Weakness Status: Acute Comment Review of Relevant I have reviewed the following items juan j (where applicable) has been applied. Justifications for Admission Other Justification RULA RODRIGUEZ MD Nov 28, 2019 10:14
--- NOTE | 2019-11-28 10:33 | NUR ---
PETER following. Discussed with RN, awaiting completion of Medicaid application to send to [facility]. PETER will continue to follow. Addendum: 11/28/19 at 1205 by VALENTINA GREEN [facility] does not have any isolation rooms available at this time, so cannot accept pt. (Pt would have be isolated there for 2 weeks due to being in hospital). PETER still awaiting medicaid application for [facility]. Addendum: 11/28/19 at 1510 by VALENTINA GREEN Med Assist notified SW they finished the medicaid application and sent to [facility]. PETER spoke with Amber at [facility] - since it is so late on Sunday, and their business loans officer has left for the day, they will not be able to give an answer until Sunday. RN notified. Attempted to contact pt to notify.
[2019-11-28 11:00] VITALS: BP 150/74
[2019-11-28 15:00] VITALS: BP 148/76
[2019-11-28 19:00] VITALS: BP 164/77
[2019-11-28] MEDS: ACETAMINOPHEN 325 MG TABLET. PO PRN (20:54)
[2019-11-28 23:00] VITALS: BP 143/69
[2019-11-29 03:00] VITALS: BP 159/70
[2019-11-29] MEDS: IV NORMAL SALINE 1000ML BAG 1,000 ML IV SCH ×2 (04:55→15:00)
[2019-11-29] MEDS: LEVOTHYROXINE 25 MCG TABLET. PO SCH (05:56)
[2019-11-29 07:00] VITALS: BP 167/67
[2019-11-29] MEDS: HEPARIN for SUB-Q USE 5,000 UNIT/ML VIAL. SQ SCH ×2 (09:00→21:00)
[2019-11-29 11:00] VITALS: BP 159/100
[2019-11-29] MEDS: hydroCHLOROthiazide 12.5 MG CAPSULE PO SCH (11:41)
[2019-11-29] MEDS: CYANOCOBALAMIN (VITAMIN B-12) 1,000 MCG TABLET. PO SCH (11:41)
[2019-11-29] MEDS: DOCUSATE SODIUM 100 MG CAPSULE. PO SCH ×2 (11:41→21:31)
[2019-11-29 15:00] VITALS: BP 106/72
--- NOTE | 2019-11-29 18:11 | PDOC ---
PROGRESS NOTES Date of Service: DATE: 11/29/19 TIME: 18:10 Chief Complaint Chief Complaint Generalized weakness vasomotor nephropathy Anemia due to B12 deficiency physical deconditioning dehydration Dementia Moderate pulmonary hypertension with PA pressures of 52 Negative covid test continue IV potassium replacement PRN Continue p.o. vitamin B12 replacement inpatient evaluate with PT/OT. Lovenox for DVT prophylaxis ADA diet DNR Discussed with RN and PETER Disposition pending SNF versus LTAC placement Surrogate decision maker is the . History of Present Illness History of Present Illness 79-year-old female who presents with complaints of generalized weakness for the past month. She states her weakness is worse in her bilateral lower legs. Patient was recently hospitalized at [facility] after sustaining a fall with head injury. She was sent to [facility] nursing [facility] for further rehab and discharged home. Patient states that her weakness has not gotten any worse, but has not gotten better, which is the reason why she came to the ER. She states she lives at home with her who is unable to care for. They have discussed long-term care in the past but have been unable to make a decision appropriate facility. Patient is wanting to pursue long-term care facilities upon discharge. I questioned her about her past medical history, she giggles and states "I do not know". She denies any significant pain. 11/24/2019 No acute events overnight. Patient seen and examined bedside. Patient is mildly confused and is alert and awake. Patient does not have any complaints at this time. Patient's chart, labs, images were reviewed and discussed with RN 11/25/2019 No acute events overnight. Patient seen and examined bedside. Patient is alert and awake and has no complaints voiced at this time. Patient's chart, labs, images were reviewed and discussed with RN 11/26/2019 No acute events overnight. Patient is seen and examined bedside and tolerating breakfast. Patient's chart, labs, images were reviewed and discussed with RN 11/27/2019 No events overnight. Patient seen and examined bedside. No voiced complaints at this time. Patient's chart, labs, images were reviewed and discussed with RN 11/28/2019 No acute events overnight. No complaints at this time. Patient's chart, labs, images were reviewed and discussed with RN 11/29/2019 Patient with no acute events reported overnight, Patient seems to be doing better and relates to me she was able to ambulate through the hallways twice yesterday, reassurance provided, no concerns voiced during my encounter Vitals Vitals Vital Signs Date Time Temp Pulse Resp B/P (MAP) Pulse Ox O2 Delivery O2 Flow Rate FiO2 11/29/19 15:00 97.6 78 18 106/72 (83) 96 Room Air 97.6 Physical Exam Physical Exam GEN: No apparent distress. Alert and oriented HEENT: Normal cephalic, atraumatic, external auditory canals are patent NECK: Supple, no JVD, no thyromegaly was noted LUNGS: Bilateral crackles HEART: RRR, S1, S2 present. Peripheral pulses intact, no obvious murmurs noted ABDOMEN: Soft, nontender. Positive bowel sounds, no organomegaly, normal bowel sounds EXTREMITIES: Strength is 4 out of 5 in lower extremities. +1 pedal edema bilaterally General: Alert, No acute distress Abdomen: Soft, No tenderness, Other (Obese abdomen) Extremities: No clubbing, No cyanosis, Other (+1 bilateral lower extremity edema) Skin: No rashes, No significant lesion Assessment and Plan Assessmemt and Plan Problems Medical Problems: (1) Weakness Status: Acute Comment Review of Relevant I have reviewed the following items juan j (where applicable) has been applied. Labs Laboratory Tests Test 11/28/19 04:00 Sodium Level 140 mmol/L (136-145) Potassium Level 4.0 mmol/L (3.5-5.1) Chloride Level 105 mmol/L (98-107) Carbon Dioxide Level 27 mmol/L (21-32) Anion Gap 8 (6-14) Blood Urea Nitrogen 18 mg/dL (7-20) Creatinine 0.9 mg/dL (0.6-1.0) Estimated GFR (Cockcroft-Gault) 60.2 Glucose Level 88 mg/dL (70-99) Calcium Level 8.7 mg/dL (8.5-10.1) Medications Current Medications Acetaminophen (Tylenol) 650 mg 1X ONCE PO Last administered on 11/22/19at 22:44; Start 11/22/19 at 22:30; Stop 11/22/19 at 22:31; Status DC Calcium Carbonate/ Glycine (Tums) 500 mg PRN Q3HRS PRN PO UPSET STOMACH; Start 11/23/19 at 07:45 Acetaminophen (Tylenol) 650 mg PRN Q6HRS PRN PO Headaches, Temp > 101.5F Last administered on 11/28/19at 20:54; Start 11/23/19 at 07:45 Ibuprofen (Motrin) 400 mg PRN Q6HRS PRN PO INFLAMMATION Last administered on 11/28/19at 04:13; Start 11/23/19 at 07:45 Docusate Sodium (Colace) 100 mg BID PO Last administered on 11/29/19at 11:41; Start 11/23/19 at 09:00 Heparin Sodium (Porcine) (Heparin Sodium) 5,000 unit Q12HR SQ Last administered on 11/25/19at 21:09; Start 11/23/19 at 09:00 Sodium Chloride 1,000 ml @ 100 mls/hr Q10H IV Last administered on 11/29/19 04:55; Start 11/23/19 at 09:00; Stop 11/29/19 at 16:28; Status DC Hydrochlorothiazide (Microzide) 12.5 mg DAILY08 PO Last administered on 11/29/19at 11:41; Start 11/24/19 at 08:00 Levothyroxine Sodium (Synthroid) 25 mcg DAILY06 PO Last administered on 11/29/19at 05:56; Start 11/24/19 at 06:00 Cyanocobalamin (Vitamin B-12) 1,000 mcg 1X ONCE IM Last administered on 11/24/19 at 13:30; Start 11/24/19 at 12:30; Stop 11/24/19 at 12:31; Status DC Cyanocobalamin (Vitamin B-12) 1,000 mcg DAILY PO Last administered on 11/29/19at 11:41; Start 11/25/19 at 09:00 Potassium Chloride (Klor-Con) 40 meq 1X ONCE PO Last administered on 11/26/19at 09:26; Start 11/26/19 at 09:30; Stop 11/26/19 at 09:31; Status DC Active Scripts Active Reported Amlodipine Besylate 10 Mg Tablet 10 Mg PO DAILY Hydrochlorothiazide Capsule (Hydrochlorothiazide) 12.5 Mg Capsule 12.5 Mg PO Levothyroxine Sodium 25 Mcg Tablet 25 Mcg PO Vitals/I & O Vital Sign - Last 24 Hours 11/28/19 11/28/19 11/28/19 11/29/19 19:00 19:30 23:00 03:00 Temp 98.5 98.4 98.5 98.5 98.4 98.5 Pulse 76 70 74 Resp 18 18 18 B/P (MAP) 164/77 (106) 143/69 (93) 159/70 (99) Pulse Ox 100 98 97 O2 Delivery Room Air Room Air Room Air Room Air 11/29/19 11/29/19 11/29/19 11/29/19 07:00 08:00 11:00 15:00 Temp 97.9 98.0 97.6 97.9 98.0 97.6 Pulse 70 61 78 Resp 18 18 18 B/P (MAP) 167/67 (100) 159/100 (119) 106/72 (83) Pulse Ox 98 93 96 O2 Delivery Room Air Room Air Room Air Room Air Intake and Output 11/28/19 11/28/19 11/29/19 15:00 23:00 07:00 Intake Total 180 ml Balance 180 ml Justicifation of Admission Dx: Justifications for Admission: Justification of Admission Dx: Yes DELMY BALDWIN MD Nov 29, 2019 18:11
[2019-11-29] MEDS: IBUPROFEN 400 MG TABLET. PO PRN (18:29)
[2019-11-29 19:00] VITALS: BP 166/72
[2019-11-29] MEDS: ACETAMINOPHEN 325 MG TABLET. PO PRN (21:31)
[2019-11-29 23:00] VITALS: BP 161/77
[2019-11-30 03:00] VITALS: BP 171/91
[2019-11-30 07:00] VITALS: BP 114/72
[2019-11-30] MEDS: LEVOTHYROXINE 25 MCG TABLET. PO SCH (07:00)
[2019-11-30] MEDS: DOCUSATE SODIUM 100 MG CAPSULE. PO SCH ×2 (09:48→20:59)
[2019-11-30] MEDS: hydroCHLOROthiazide 12.5 MG CAPSULE PO SCH (09:48)
[2019-11-30] MEDS: CYANOCOBALAMIN (VITAMIN B-12) 1,000 MCG TABLET. PO SCH (09:49)
[2019-11-30] MEDS: HEPARIN for SUB-Q USE 5,000 UNIT/ML VIAL. SQ SCH ×2 (09:59→21:00)
[2019-11-30 11:00] VITALS: BP 122/78
--- NOTE | 2019-11-30 11:51 | PDOC ---
PROGRESS NOTES Date of Service: DATE: 11/30/19 TIME: 11:50 Chief Complaint Chief Complaint Generalized weakness vasomotor nephropathy Anemia due to B12 deficiency physical deconditioning dehydration Dementia Moderate pulmonary hypertension with PA pressures of 52 Negative covid test continue IV potassium replacement PRN Continue p.o. vitamin B12 replacement PT/OT Lovenox for DVT prophylaxis ADA diet DNR Discussed with RN and PETER Disposition pending SNF versus LTAC placement Surrogate decision maker is the . CM to help with Discharge in the am History of Present Illness History of Present Illness 79-year-old female who presents with complaints of generalized weakness for the past month. She states her weakness is worse in her bilateral lower legs. Patient was recently hospitalized at [facility] after sustaining a fall with head injury. She was sent to [facility] for further rehab and discharged home. Patient states that her weakness has not gotten any worse, but has not gotten better, which is the reason why she came to the ER. She states she lives at home with her who is unable to care for. They have discussed long-term care in the past but have been unable to make a decision appropriate facility. Patient is wanting to pursue long-term care facilities upon discharge. I questioned her about her past medical history, she giggles and states "I do not know". She denies any significant pain. 11/24/2019 No acute events overnight. Patient seen and examined bedside. Patient is mildly confused and is alert and awake. Patient does not have any complaints at this time. Patient's chart, labs, images were reviewed and discussed with RN 11/25/2019 No acute events overnight. Patient seen and examined bedside. Patient is alert and awake and has no complaints voiced at this time. Patient's chart, labs, images were reviewed and discussed with RN 11/26/2019 No acute events overnight. Patient is seen and examined bedside and tolerating breakfast. Patient's chart, labs, images were reviewed and discussed with RN 11/27/2019 No events overnight. Patient seen and examined bedside. No voiced complaints at this time. Patient's chart, labs, images were reviewed and discussed with RN 11/28/2019 No acute events overnight. No complaints at this time. Patient's chart, labs, images were reviewed and discussed with RN 11/29/2019 Patient with no acute events reported overnight, Patient seems to be doing better and relates to me she was able to ambulate through the hallways twice yesterday, reassurance provided, no concerns voiced during my encounter 11/30/2019 No acute events reported overnight, case discussed with nursing staff patient in no acute distress no complaints during my visit sitting in chair eating lunch no acute distress. No complaints voiced during my encounter except that she wants to be discharged from the hospital. From review of the chart it seems like case management is working on placement hopefully anticipating discharge in the a.m., patient eager to be released from the hospital Vitals Vitals Vital Signs Date Time Temp Pulse Resp B/P (MAP) Pulse Ox O2 Delivery O2 Flow Rate FiO2 11/30/19 11:00 97.9 76 18 122/78 (93) 97 Room Air 97.9 Physical Exam Physical Exam GEN: No apparent distress. Alert and oriented HEENT: Normal cephalic, atraumatic, external auditory canals are patent NECK: Supple, no JVD, no thyromegaly was noted LUNGS: Bilateral crackles HEART: RRR, S1, S2 present. Peripheral pulses intact, no obvious murmurs noted ABDOMEN: Soft, nontender. Positive bowel sounds, no organomegaly, normal bowel sounds EXTREMITIES: Strength is 4 out of 5 in lower extremities. +1 pedal edema bilaterally General: Alert, No acute distress Abdomen: Soft, No tenderness, Other (Obese abdomen) Extremities: No clubbing, No cyanosis, Other (+1 bilateral lower extremity edema) Skin: No rashes, No significant lesion Assessment and Plan Assessmemt and Plan Problems Medical Problems: (1) Weakness Status: Acute Comment Review of Relevant I have reviewed the following items juan j (where applicable) has been applied. Medications Current Medications Acetaminophen (Tylenol) 650 mg 1X ONCE PO Last administered on 11/22/19at 22:44; Start 11/22/19 at 22:30; Stop 11/22/19 at 22:31; Status DC Calcium Carbonate/ Glycine (Tums) 500 mg PRN Q3HRS PRN PO UPSET STOMACH; Start 11/23/19 at 07:45 Acetaminophen (Tylenol) 650 mg PRN Q6HRS PRN PO Headaches, Temp > 101.5F Last administered on 11/29/19at 21:31; Start 11/23/19 at 07:45 Ibuprofen (Motrin) 400 mg PRN Q6HRS PRN PO INFLAMMATION Last administered on 11/29/19 18:29; Start 11/23/19 at 07:45 Docusate Sodium (Colace) 100 mg BID PO Last administered on 11/30/19 09:48; Start 11/23/19 at 09:00 Heparin Sodium (Porcine) (Heparin Sodium) 5,000 unit Q12HR SQ Last administered on 11/30/19 09:59; Start 11/23/19 at 09:00 Sodium Chloride 1,000 ml @ 100 mls/hr Q10H IV Last administered on 11/29/19 04:55; Start 11/23/19 at 09:00; Stop 11/29/19 at 16:28; Status DC Hydrochlorothiazide (Microzide) 12.5 mg DAILY08 PO Last administered on 11/30/19 09:48; Start 11/24/19 at 08:00 Levothyroxine Sodium (Synthroid) 25 mcg DAILY06 PO Last administered on 11/30/19 07:00; Start 11/24/19 at 06:00 Cyanocobalamin (Vitamin B-12) 1,000 mcg 1X ONCE IM Last administered on 11/24/19 13:30; Start 11/24/19 at 12:30; Stop 11/24/19 at 12:31; Status DC Cyanocobalamin (Vitamin B-12) 1,000 mcg DAILY PO Last administered on 11/30/19 09:49; Start 11/25/19 at 09:00 Potassium Chloride (Klor-Con) 40 meq 1X ONCE PO Last administered on 11/26/19 09:26; Start 11/26/19 at 09:30; Stop 11/26/19 at 09:31; Status DC Active Scripts Active Reported Amlodipine Besylate 10 Mg Tablet 10 Mg PO DAILY Hydrochlorothiazide Capsule (Hydrochlorothiazide) 12.5 Mg Capsule 12.5 Mg PO Levothyroxine Sodium 25 Mcg Tablet 25 Mcg PO Vitals/I & O Vital Sign - Last 24 Hours 11/29/19 11/29/19 11/29/19 11/29/19 15:00 19:00 19:35 23:00 Temp 97.6 97.9 98.1 97.6 97.9 98.1 Pulse 78 78 85 Resp 18 18 18 B/P (MAP) 106/72 (83) 166/72 (103) 161/77 (105) Pulse Ox 96 96 94 O2 Delivery Room Air Room Air Room Air Room Air 11/30/19 11/30/19 11/30/19 03:00 07:00 11:00 Temp 98.2 97.7 97.9 98.2 97.7 97.9 Pulse 75 74 76 Resp 18 18 18 B/P (MAP) 171/91 (117) 114/72 (86) 122/78 (93) Pulse Ox 96 97 97 O2 Delivery Room Air Room Air Room Air Intake and Output 11/29/19 11/29/19 11/30/19 15:00 23:00 07:00 Intake Total 360 ml 240 ml Balance 360 ml 240 ml Justicifation of Admission Dx: Justifications for Admission: Justification of Admission Dx: Yes DELMY BALDWIN MD Nov 30, 2019 11:51
[2019-11-30 15:00] VITALS: BP 132/72
[2019-11-30 19:00] VITALS: BP 158/80
[2019-11-30 23:00] VITALS: BP 160/80
[2019-12-01] VITALS (8 sets, daily range): BP systolic 97–175; BP diastolic 60–92
[2019-12-01] MEDS: LEVOTHYROXINE 25 MCG TABLET. PO SCH (06:26)
[2019-12-01] MEDS: hydroCHLOROthiazide 12.5 MG CAPSULE PO SCH (08:00)
--- NOTE | 2019-12-01 09:40 | NUR ---
PETER following. Discussed with RN. PETER sent message to Amber at [facility] requesting update on pt acceptance with medicaid pending - awaiting contact back. PETER will continue to follow.
[2019-12-01] MEDS: CYANOCOBALAMIN (VITAMIN B-12) 1,000 MCG TABLET. PO SCH (09:45)
[2019-12-01] MEDS: DOCUSATE SODIUM 100 MG CAPSULE. PO SCH ×2 (09:45→21:00)
[2019-12-01] MEDS: HEPARIN for SUB-Q USE 5,000 UNIT/ML VIAL. SQ SCH ×2 (09:51→21:31)
--- NOTE | 2019-12-01 11:06 | PDOC ---
[employer] PROGRESS NOTE Date of Service DOS: DATE: 12/01/19 TIME: 11:01 Chief Complaint Chief Complaint Generalized weakness vasomotor nephropathy Anemia due to B12 deficiency physical deconditioning dehydration Dementia Moderate pulmonary hypertension with PA pressures of 52 Negative covid test History of Present Illness History of Present Illness 12/01/2019 Pt seen and examined REJI MENDOZA DW PT 79-year-old female who presents with complaints of generalized weakness for the past month. She states her weakness is worse in her bilateral lower legs. Patient was recently hospitalized at [facility] after sustaining a fall with head injury. She was sent to [facility] for further rehab and discharged home. Patient states that her weakness has not gotten any worse, but has not gotten better, which is the reason why she came to the ER. She states she lives at home with her who is unable to care for. They have discussed long-term care in the past but have been unable to make a decision appropriate facility. Patient is wanting to pursue long-term care facilities upon discharge. I questioned her about her past medical history, she giggles and states "I do not know". She denies any significant pain. 11/24/2019 No acute events overnight. Patient seen and examined bedside. Patient is mildly confused and is alert and awake. Patient does not have any complaints at this time. Patient's chart, labs, images were reviewed and discussed with RN 11/25/2019 No acute events overnight. Patient seen and examined bedside. Patient is alert and awake and has no complaints voiced at this time. Patient's chart, labs, images were reviewed and discussed with RN 11/26/2019 No acute events overnight. Patient is seen and examined bedside and tolerating breakfast. Patient's chart, labs, images were reviewed and discussed with RN 11/27/2019 No events overnight. Patient seen and examined bedside. No voiced complaints at this time. Patient's chart, labs, images were reviewed and discussed with RN 11/28/2019 No acute events overnight. No complaints at this time. Patient's chart, labs, images were reviewed and discussed with RN 11/29/2019 Patient with no acute events reported overnight, Patient seems to be doing better and relates to me she was able to ambulate through the hallways twice yesterday, reassurance provided, no concerns voiced during my encounter 11/30/2019 No acute events reported overnight, case discussed with nursing staff patient in no acute distress no complaints during my visit sitting in chair eating lunch no acute distress. No complaints voiced during my encounter except that she wants to be discharged from the hospital. From review of the chart it seems like case management is working on placement hopefully anticipating discharge in the a.m., patient eager to be released from the hospital Vitals/I&O Vitals/I&O: Vital Signs Date Time Temp Pulse Resp B/P (MAP) Pulse Ox O2 Delivery O2 Flow Rate FiO2 12/01/19 08:13 98.4 90 18 97/60 (72) 94 Room Air 98.4 I & O 11/30/19 11/30/19 12/01/19 15:00 23:00 07:00 Intake Total 500 ml 240 ml 120 ml Balance 500 ml 240 ml 120 ml Physical Exam General: Alert, No acute distress Heart: Regular rate, Normal S1 Lungs: Clear Abdomen: Soft, No tenderness, Other (Obese abdomen) Extremities: No clubbing, No cyanosis, Other (+1 bilateral lower extremity edema) Skin: No rashes, No significant lesion Review of Systems Review of Systems: co weakness co hunger Assessment and Plan Assessmemt and Plan Problems Medical Problems: (1) Weakness Status: Acute Generalized weakness vasomotor nephropathy Anemia due to B12 deficiency physical deconditioning dehydration Dementia Moderate pulmonary hypertension with PA pressures of 52 Negative covid test Plan Continue IV potassium replacement PRN Continue p.o. vitamin B12 replacement PT/OT Lovenox for DVT prophylaxis ADA diet DNR [place] meds Labs Discussed with RN and SW Disposition pending SNF versus LTAC placement Surrogate decision maker is the . CM to help with Discharge in the am Comment Review of Relevant I have reviewed the following items juan j (where applicable) has been applied. Justifications for Admission Other Justification LANIE BALLESTEROS III DO Dec 01, 2019 11:06
--- NOTE | 2019-12-01 11:24 | SNU/HH DC ---
DISCHARGE ORDERS DISCHARGE INFORMATION: FINAL DIAGNOSIS Problems Medical Problems: (1) Weakness Status: Acute CONDITION ON DISCHARGE: Stable CODE STATUS: Code Status: Full HALFWAY: SNF STAY <30 DAYS: Yes HOSPICE: HOSPICE: No HOSPICE EVAL & TREAT: No LTAC: ADMIT TO LTAC: No POST DISCHARGE ORDERS: ACTIVITY ORDERS: Resume previous activity DIET AFTER DISCHARGE: Cardiac TREATMENT/EQUIPMENT ORDERS: Physical Therapy For: Evalulation/Treatment Occupational Therapy For: Evaluation/Treatment DISCHARGE MEDICATIONS: Home Meds Reported Medications Amlodipine Besylate (AMLODIPINE BESYLATE) 10 Mg Tablet, 10 MG PO DAILY for htn, TAB 11/23/19 Hydrochlorothiazide (HYDROCHLOROTHIAZIDE CAPSULE ) 12.5 Mg Capsule, 12.5 MG PO 06/26/13 Levothyroxine Sodium (LEVOTHYROXINE SODIUM) 25 Mcg Tablet, 25 MCG PO 06/26/13 LANIE BALLESTEROS III DO Dec 01, 2019 11:24
[2019-12-01] MEDS: ACETAMINOPHEN 325 MG TABLET. PO PRN (21:26)
[2019-12-02 03:00] VITALS: BP 171/69
[2019-12-02] MEDS: LEVOTHYROXINE 25 MCG TABLET. PO SCH (06:01)
[2019-12-02 07:00] VITALS: BP 159/64
[2019-12-02] MEDS: DOCUSATE SODIUM 100 MG CAPSULE. PO SCH (08:57)
[2019-12-02] MEDS: CYANOCOBALAMIN (VITAMIN B-12) 1,000 MCG TABLET. PO SCH (08:57)
[2019-12-02] MEDS: hydroCHLOROthiazide 12.5 MG CAPSULE PO SCH (08:58)
[2019-12-02] MEDS: HEPARIN for SUB-Q USE 5,000 UNIT/ML VIAL. SQ SCH (09:03)
--- NOTE | 2019-12-02 09:35 | NUR ---
PETER following. Discussed with RN, Sabi TRISTAN are trying to reach pt's to get some further financial information for Medicaid pending. PETER will continue to follow. Addendum: 12/02/19 at 1309 by VALENTINA GREEN Sabi TRISTAN spoke with pt and pt's - they could not get an accurate picture of pt's financial situation so are unable to take pt at this time with medicaid pending. PETER spoke with pt, she is agreeable to [facility], and to have the [facility] social worker health services come to assist with medicaid paperwork and financial portion of this. Pt said her can pick her up. PETER questioned whether the pt had any children who could help at home, pt reported her son about 20 years ago, so they do not have any children any longer. Pt wondered if her might go into [facility] with her, and hopes they can get it all figured out soon so she can get into [facility] care and not have to struggle at home. [facility] Joe RN will meet with pt prior to discharge. PETER notified Dr. Reich of need for home health discharge orders. PETER will continue to follow. Addendum: 12/02/19 at 1526 by VALENTINA YING SW Tatyana Haley RN) met with pt, pt agreeable to home health and accepted with [facility]. Pt's notified by RN RE pt ready for discharge. Pt is a high risk readmission due to needing [facility] care. No further SW needs.
[2019-12-02 11:00] VITALS: BP 162/64
--- NOTE | 2019-12-02 12:20 | PDOC ---
[employer] PROGRESS NOTE Date of Service DOS: DATE: 12/02/19 TIME: 12:14 Chief Complaint Chief Complaint Generalized weakness vasomotor nephropathy History of Present Illness History of Present Illness 12/02/2019 Pt seen and examined. REJI BARKER. REJI case management. 12/01/2019 Pt seen and examined REJI MENDOZA DW PT 79-year-old female who presents with complaints of generalized weakness for the past month. She states her weakness is worse in her bilateral lower legs. Patient was recently hospitalized at [facility] after sustaining a fall with head injury. She was sent to [facility] for further rehab and discharged home. Patient states that her weakness has not gotten any worse, but has not gotten better, which is the reason why she came to the ER. She states she lives at home with her who is unable to care for. They have discussed long-term care in the past but have been unable to make a decision appropriate facility. Patient is wanting to pursue long-term care facilities upon discharge. I questioned her about her past medical history, she giggles and states "I do not know". She denies any significant pain. 11/24/2019 No acute events overnight. Patient seen and examined bedside. Patient is mildly confused and is alert and awake. Patient does not have any complaints at this time. Patient's chart, labs, images were reviewed and discussed with RN 11/25/2019 No acute events overnight. Patient seen and examined bedside. Patient is alert and awake and has no complaints voiced at this time. Patient's chart, labs, images were reviewed and discussed with RN 11/26/2019 No acute events overnight. Patient is seen and examined bedside and tolerating breakfast. Patient's chart, labs, images were reviewed and discussed with RN 11/27/2019 No events overnight. Patient seen and examined bedside. No voiced complaints at this time. Patient's chart, labs, images were reviewed and discussed with RN 11/28/2019 No acute events overnight. No complaints at this time. Patient's chart, labs, images were reviewed and discussed with RN 11/29/2019 Patient with no acute events reported overnight, Patient seems to be doing better and relates to me she was able to ambulate through the hallways twice yesterday, reassurance provided, no concerns voiced during my encounter 11/30/2019 No acute events reported overnight, case discussed with nursing staff patient in no acute distress no complaints during my visit sitting in chair eating lunch no acute distress. No complaints voiced during my encounter except that she wants to be discharged from the hospital. From review of the chart it seems like case management is working on placement hopefully anticipating discharge in the a.m., patient eager to be released from the hospital Vitals/I&O Vitals/I&O: Vital Signs Date Time Temp Pulse Resp B/P (MAP) Pulse Ox O2 Delivery O2 Flow Rate FiO2 12/02/19 11:00 98.3 71 16 162/64 (96) 96 Room Air 98.3 I & O 12/01/19 12/01/19 12/02/19 15:00 23:00 07:00 Intake Total 420 ml 240 ml 200 ml Balance 420 ml 240 ml 200 ml Physical Exam General: Alert, Oriented X3, No acute distress Heart: Normal S1, Normal S2 Lungs: Clear Abdomen: Soft, No tenderness, Other (Obese abdomen) Extremities: No clubbing, No cyanosis, Other (+1 bilateral lower extremity edema) Skin: No rashes, No significant lesion Review of Systems Review of Systems: Weakness. No shortness of breath. Assessment and Plan Assessmemt and Plan Problems Medical Problems: (1) Weakness Status: Acute Assessment: Generalized weakness vasomotor nephropathy Anemia due to B12 deficiency physical deconditioning dehydration Dementia Moderate pulmonary hypertension with PA pressures of 52 Plan: CM to assist with discharge to SNF. Continue IV potassium replacement PRN Continue p.o. vitamin B12 replacement PT OT Lovenox for DVT prophylaxis ADA diet DNR Home meds Labs Discussed with RN and SW Surrogate decision maker is the . DNR Comment Review of Relevant I have reviewed the following items juan j (where applicable) has been applied. Justifications for Admission Other Justification LANIE BALLESTEROS III DO Dec 02, 2019 12:20
--- NOTE | 2019-12-02 12:58 | SNU/HH DC ---
DISCHARGE WITH HOME HEALTH DISCHARGE INFORMATION: Final Diagnosis: Problems Medical Problems: (1) Weakness Status: Acute Condition on Discharge: Stable CODE STATUS: Code Status: Full HOME HEALTH: Face to Face: I certify this patient is under my care and that I, or a nurse practitioner or physician's acute care nursing assistant working with me, had a face to face encounter that meets the physician face to face encounter requirements with this patient on []. Medical Complications: DJD, Other (sacral wound) [facility] For: Assess & Educate Safety RN For Eval/Treatment: Yes Physical Therapy For: Evalulation/Treatment Occupational Therapy For: Evaluation/Treatment Home Health Aide For: Self-care DAT[employer] SOFTWARE CONSULTANT For: Community Resources Pt Meets Homebound Status: Unsteady balance w/ amb, POST DISCHARGE ORDERS: Activity Instructions for Disc: Resume previous activity DIET AFTER DISCHARGE: Cardiac CERTIFICATION STATEMENT: Certification Statement: Certification Statement: Based on the above finding, I certify that this patient is confined to the home and needs intermittent [facility] care, physical therapy and/or speech therapy, or continues to need occupational therapy.~ This patient is under my care, and I have initiated the establishment of the plan of care.~ This patient will be followed by myself or a community physician who will periodically review the plan of care. Home Meds Reported Medications Amlodipine Besylate (AMLODIPINE BESYLATE) 10 Mg Tablet, 10 MG PO DAILY for htn, TAB 11/23/19 Hydrochlorothiazide (HYDROCHLOROTHIAZIDE CAPSULE ) 12.5 Mg Capsule, 12.5 MG PO 06/26/13 Levothyroxine Sodium (LEVOTHYROXINE SODIUM) 25 Mcg Tablet, 25 MCG PO 06/26/13 LANIE BALLESTEROS III DO Dec 02, 2019 12:58
[2019-12-02 15:00] VITALS: BP 173/88
--- NOTE | 2019-12-02 15:30 | NUR ---
Pt escorted to ER entrance with belongings and IV discontinued, by wheelchair by this Rn.
[2019-12-03] MEDS ORDERED: amLODIPine BESYLATE 5 MG TABLET PO SCH (09:00)
--- NOTE | 2019-12-07 14:11 | DS ---
DATE OF DISCHARGE: 12/02/2019 ADMISSION DIAGNOSIS: Weakness. DISCHARGE DIAGNOSIS: Resolving weakness. HOSPITAL COURSE: The patient is a pleasant 79-year-old female who presented with weakness. We gave her physical therapy, occupational therapy and fluids. Encourage p.o. intake and discharge to home with home health. DISPOSITION: Home with home health. ACTIVITY: As tolerated. DIET: Low sodium. MEDICATIONS: Please see the MRAD. TOTAL TIME: 31 minutes. LANIE BALLESTEROS DO DR: EFREM/jonna JOB#: [id number] / [id number]
== END 2019-12-02 16:58 | disposition home health service (06) | DRG 640 ==
LOC: ER 18:53 → 4 NORTH 23:01 → OBSVTOIN 11-23 07:39
PROVIDERS: ADMIT Internal Medicine; ATTEND Internal Medicine
DX: E86.0 Dehydration (principal); N17.0 Acute kidney failure with tubular necrosis; I10 Essential (primary) hypertension; E78.5 Hyperlipidemia, unspecified; E03.9 Hypothyroidism, unspecified; D51.9 Vitamin B12 deficiency anemia, unspecified; F03.90 Unspecified dementia, unspecified severity, without behavioral disturbance, psychotic disturbance, mood disturbance, and anxiety; Z66 Do not resuscitate; I27.20 Pulmonary hypertension, unspecified; Z20.828 Contact with and (suspected) exposure to other viral communicable diseases
CPT/HCPCS: 36415; 80048; 80053; 82550; 82607; 84443; 84484; 85007; 85025; 93005; 93306; 99285; G0378; G0379; J1644; J3420; J7030; 97110-GP; 97116-GP; 97530-GO; 97530-GP; 97535-GO; U0003-CS